=== PATIENT | female | born 1970 | race Caucasian/White ===

== ENCOUNTER 2016-10-29 15:06 | Emergency (ER) | payer MEDICAID, OTHER ==
[~2016-10-29] VITALS: Wt 60.0 kg
[2016-10-29] MEDS ORDERED: LORAZEPAM 1 MG TAB PO ONE (15:30)
[2016-10-29] MEDS ORDERED: LORA-441 PO (17:13)
--- NOTE | 2016-10-29 17:14 | ERD ---
ER Documentation Chief Complaint Date/Time DATE: 10/29/16 TIME: 17:14 Chief Complaint ANXIETY FOR THE PAST FEW HRS AFTER A ARGUEMENT. TACHYPNEIC WITH CARPAL SPAS HPI Patient is a 45-year-old female with no medical problems who presents with facial numbness. She says that she was arguing with her and then felt anxious. She said that it started just prior to arrival. She was brought in by ambulance. Upon review of old medical records this is the patient's first visit to the emergency department. She does not currently have a primary doctor. ROS All systems reviewed and are negative except as per history of present illness. Medications Home Meds Active Scripts Lorazepam* (Ativan*) 0.5 Mg Tablet, 0.5 MG PO Q8, #6 TAB Prov:MELINA VAUGHN MD 10/29/16 Allergies Allergies: Coded Allergies: No Known Allergy (Unverified , 10/29/16) PMhx/Soc Medical and Surgical Hx: pt denies Medical Hx FmHx Family History: No diabetes Physical Exam Vitals Vital Signs Date Time Temp Pulse Resp B/P Pulse Ox O2 Delivery O2 Flow Rate FiO2 10/29/16 17:26 98.5 73 21 113/85 98 Room Air 10/29/16 15:12 98.0 88 20 138/72 100 Physical Exam Const: Anxious Head: Atraumatic Eyes: Normal Conjunctiva ENT: Normal External Ears, Nose and Mouth. Neck: Full range of motion..~ No meningismus. Resp: Clear to auscultation bilaterally Cardio: Regular rate and rhythm, no murmurs Abd: Soft, non tender, non distended. Normal bowel sounds Skin: No petechiae or rashes Back: No midline or flank tenderness Ext: No cyanosis, or edema Neur: Awake and alert Psych: Anxious but no suicidal or homicidal ideation Results 24 hrs Laboratory Tests Test 10/29/16 16:37 Bedside Glucose 84mg/dL Current Medications Medications (Trade) Dose Ordered Sig/Rom Route PRN Reason Start Time Stop Time Status Last Admin Dose Admin Lorazepam (Ativan) 1 mg ONCE ONCE PO 10/29/16 15:30 10/29/16 15:31 DC 10/29/16 15:22 Procedures/MDM EKG read by me: Rate/Rhythm: Regular rate and rhythm at a rate of 75 Intervals: Normal Impression: No evidence of ischemia or arrhythmia Accu-Chek is normal. test is negative. Patient is a 45-year-old female presents with what appears to be an acute panic attack. Her EKG is normal without signs of ischemia. She has no signs of hypo- or hyperkalemia. The patient will be discharged and feels better after Ativan. The patient can return for any worsening symptoms. At this point I believe outpatient management is appropriate. She will be given a short course of Ativan for panic attack. She will need to follow-up the local clinics within 24 -48 hours as she does not currently have a primary doctor. Departure Diagnosis: Primary Impression: Anxiety attack Condition: Fair Patient Instructions: Panic Attack [facility] Usted se louise hecho un examen mdico de control que le indica que no est en ara condicin que requiera tratamiento urgente en el Departamento de Emergencia. Un estudio ms profundo y el tratamiento de rodriguez condicin pueden esperar sin ningn riesgo hasta que usted sea atendida/o en el consultorio de rodriguez mdico o ara cl jason. Es responsabilidad suya arreglar ara zafar para el seguimiento del taryn. MANEJO DE CONDICIONES NO URGENTES EN EL FUTURO 1) Si usted tiene un mdico de atencin primaria: Usted debera llamar a rodriguez mdico de atencin primaria antes de venir al departamento de emergencia. Despus de las horas de consultorio, rodriguez doctor o rodriguez asociado/a est disponible por telfono. El mdico o enfermero de radha en el servicio telefnico puede asesorarle por elena medio para atender el problema, o taryn contrario se puede programar ara zafar. 2) Si usted no tiene un mdico de atencin primaria: Llame al mdico o clnica de referencia que aparece abajo priscilla las horas de consultorio para hacer ara zafar para que le vean. CLINICAS: [facility] [phone] [id number] [facility] [id number] [facility] [id number] [place] [id number] [phone] [facility] [phone] [id number] [facility]. [phone] [address] Additional Instructions: Llame al doctor MAANA y emmanuelle ara ZAFAR PARA DENTRO DE 1-2 AYERS.Dgale a la secretaria que nosotros le instruimos hacer esta zafar.Avise o llame si rodriguez condicin se empeora antes de la zafar. Regresa aqui si peor o no mejor. MELINA VAUGHN MD October 29, 2016 17:14
[2016-10-29 17:26] VITALS: BP 113/85; PULSE 73; RESP 21; TEMP 98.5
== END 2016-10-29 17:29 | disposition home or self-care (01) ==
LOC: E/R 15:06
DX: F41.9 Anxiety disorder, unspecified (principal)
CPT/HCPCS: 82962; 93005; Z7502; Z7610